=== PATIENT | male | born 1950 | race Caucasian/White ===

== ENCOUNTER 2017-10-19 06:50 | Inpatient (IN) | payer MEDICARE ==
[2017-10-17 12:22] VITALS: BP 125/72
[~2017-10-19] VITALS: Ht 193 cm; Wt 100.4 kg
[~2017-10-19 06:50] MED LIST: ALPR0.5T6 PO; APIX5TAB PO; AREDS2 PO; ASPI-515 PO; ATOR20TA PO; ATOR80TA PO; FAMO-79 PO; FLUT50DI NAS; HYDR30CR7 TP; LISI-170 PO; METO25TA35 PO; OLOP2.5D EACHEYE; SILD100T PO; SOTA80TA PO; TRIA80OI TP; UBID100C24 PO; VIT1CAPS42 PO; ZOLP10TA5 PO; areds2; will bring list DOS
[2017-10-19] MEDS ORDERED: SODIUM CHLORIDE 0.9% 1,000 ML IV SCH (07:20)
[2017-10-19] MEDS ORDERED: SODIUM CHLORIDE 0.9% 1,000 ML IV ONE (07:30)
[2017-10-19] MEDS ORDERED: MIDAZOLAM 1 MG/ML, 2ML ONE (09:22)
[2017-10-19] MEDS ORDERED: FENTANYL PF 250 MCG/5ML ONE (09:22)
[2017-10-19] MEDS ORDERED: LIDOCAINE-MPF 2% ,5ML ONE (09:29)
[2017-10-19] MEDS ORDERED: ROCURONIUM 10 MG/ML,10ML ONE (09:40)
[2017-10-19] MEDS ORDERED: PROPOFOL 10 MG/ML, 20ML ONE (09:40)
[2017-10-19] MEDS ORDERED: SUCCINYLCHOLINE 20 MG/ML, 10ML ONE (09:40)
[2017-10-19] MEDS ORDERED: DEXAMETHASONE 4 MG/ML, 1ML ONE (09:40)
[2017-10-19] MEDS ORDERED: ONDANSETRON 2MG/ML, 2ML ONE (09:40)
[2017-10-19] MEDS ORDERED: HEPARIN 1,000 UNITS/ML, 10ML ONE (10:25)
[2017-10-19] MEDS ORDERED: PROTAMINE SULFATE 10 MG/ML, 5ML ONE (12:01)
[2017-10-19] MEDS ORDERED: TRIAMCINOLONE OINT 0.025%, 15GM TP SCH (12:30)
[2017-10-19] MEDS ORDERED: HYDROCORTISONE CRM 0.025, 30GM TP PRN ×2 (12:30→16:00)
[2017-10-19] MEDS ORDERED: ZOLPIDEM 5MG TABLET PO PRN (12:30)
[2017-10-19] MEDS ORDERED: FAMOTIDINE 20 MG TABLET PO PRN (12:30)
[2017-10-19] MEDS ORDERED: MORPHINE SULFATE 4 MG/ML, 1ML IVPush PRN (13:00)
[2017-10-19] MEDS ORDERED: FENTANYL PF 100 MCG/2ML IV PRN (13:00)
[2017-10-19] MEDS ORDERED: PROMETHAZINE 25 MG/ML, 1ML IV PRN (13:00)
[2017-10-19] MEDS ORDERED: PROMETHAZINE 25 MG SUPP PR PRN (13:00)
[2017-10-19] MEDS ORDERED: ONDANSETRON ODT 8 MG PO PRN (13:00)
[2017-10-19] MEDS ORDERED: EPHEDRINE 50 MG/ML, 1ML IVPush PRN (13:00)
[2017-10-19] MEDS ORDERED: OXYcodone 5 MG/5 ML ORAL.SOL UDC PO PRN (13:00)
[2017-10-19] MEDS ORDERED: MIDAZOLAM 1 MG/ML, 2ML IV PRN (13:00)
[2017-10-19] MEDS ORDERED: DIPHENHYDRAMINE 50 MG/ML, 1ML IVPush PRN (13:00)
[2017-10-19] MEDS ORDERED: EPHEDRINE 50 MG/ML, 1ML IM PRN (13:00)
[2017-10-19] MEDS ORDERED: PROMETHAZINE 12.5 MG SUPP PR PRN (13:00)
[2017-10-19] MEDS: APIXABAN 5 MG TABLET PO SCH ×2 (13:06→20:35)
[2017-10-19] MEDS ORDERED: OXYcodone 5 MG/5 ML ORAL.SOL UDC ONE (13:29)
[2017-10-19] MEDS ORDERED: TRIAMCINOLONE OINT 0.025%, 15GM TP PRN (16:00)
[2017-10-19] MEDS: ACETAMINOPHEN 325 MG TABLET PO PRN ×2 (16:24→20:35)
[2017-10-19] MEDS: SOTALOL 80MG TABLET PO SCH (17:17)
[2017-10-19 19:22] VITALS: BP 126/62
[2017-10-19 20:35] VITALS: BP 133/75
[2017-10-19] MEDS: ATORVASTATIN 80 MG TABLET PO SCH (20:35)
[2017-10-19] MEDS: LISINOPRIL 20 MG TABLET PO SCH (20:35)
[2017-10-20 03:50] VITALS: BP 122/69
[2017-10-20] MEDS: SOTALOL 80MG TABLET PO SCH (05:38)
[2017-10-20 07:45] VITALS: BP 117/62
[2017-10-20] MEDS: MULTIVITAMINS/MINERALS TABLET PO SCH (07:58)
[2017-10-20] MEDS: TEMPLATE NON-FORMULARY MED. (Olopatadine Hcl (Pataday) 1 DROP) EACHEYE SCH (07:58)
[2017-10-20] MEDS: APIXABAN 5 MG TABLET PO SCH ×2 (07:58→19:48)
[2017-10-20] MEDS: FLUTICASONE PROPIONATE NAS SCH (07:58)
[2017-10-20] MEDS ORDERED: TEMPLATE NON-FORMULARY MED. (Ubidecarenone (Coq-10) 200 MG) PO SCH (09:00)
[2017-10-20] MEDS ORDERED: SOTALOL 80MG TABLET PO ONE (11:30)
[2017-10-20 13:56] VITALS: BP 119/72
[2017-10-20 17:48] VITALS: BP 145/75
[2017-10-20] MEDS: SOTALOL 120MG TABLET PO SCH (17:50)
[2017-10-20] MEDS: LISINOPRIL 20 MG TABLET PO SCH (19:48)
[2017-10-20] MEDS: ATORVASTATIN 80 MG TABLET PO SCH (19:48)
[2017-10-20 20:15] VITALS: BP 144/77
[2017-10-21 02:00] VITALS: BP 111/65
[2017-10-21] MEDS: SOTALOL 120MG TABLET PO SCH ×2 (06:03→17:45)
[2017-10-21 08:19] VITALS: BP 126/70
[2017-10-21] MEDS: APIXABAN 5 MG TABLET PO SCH ×2 (08:36→20:04)
[2017-10-21] MEDS: MULTIVITAMINS/MINERALS TABLET PO SCH (08:36)
[2017-10-21] MEDS: FLUTICASONE PROPIONATE NAS SCH (08:36)
[2017-10-21] MEDS: TEMPLATE NON-FORMULARY MED. (Olopatadine Hcl (Pataday) 1 DROP) EACHEYE SCH (08:36)
[2017-10-21 13:26] VITALS: BP 120/75
[2017-10-21] MEDS: ATORVASTATIN 80 MG TABLET PO SCH (20:04)
[2017-10-21] MEDS: LISINOPRIL 20 MG TABLET PO SCH (20:04)
[2017-10-21 20:58] VITALS: BP 117/70
[2017-10-22 00:36] VITALS: BP 109/64
[2017-10-22] MEDS: SOTALOL 120MG TABLET PO SCH (05:48)
[2017-10-22] MEDS ORDERED: SOTA120T14 PO (08:31)
[2017-10-22] MEDS: APIXABAN 5 MG TABLET PO SCH (08:34)
[2017-10-22] MEDS: MULTIVITAMINS/MINERALS TABLET PO SCH (08:34)
== END 2017-10-22 10:07 | disposition home or self-care (01) | DRG 274 ==
LOC: CACL 06:50 → OBSVTOIN 12:18 → ORIP 12:18 → 5SO 13:52
PROVIDERS: ADMIT Internal Medicine Cardiovascular Disease; ATTEND Internal Medicine Cardiovascular Disease
PROC: B246ZZZ Ultrasonography of Right and Left Heart (ICD-10-PCS; 2017-10-19)
PROC: 02K83ZZ Map Conduction Mechanism, Percutaneous Approach (ICD-10-PCS; 2017-10-19)
PROC: 4A023FZ Measurement of Cardiac Rhythm, Percutaneous Approach (ICD-10-PCS; 2017-10-19)
PROC: 4A0234Z Measurement of Cardiac Electrical Activity, Percutaneous Approach (ICD-10-PCS; 2017-10-19)
PROC: 02583ZZ Destruction of Conduction Mechanism, Percutaneous Approach (ICD-10-PCS; principal; 2017-10-19 09:30)
DX: I48.0 Paroxysmal atrial fibrillation (principal); D68.69 Other thrombophilia; I48.92 Unspecified atrial flutter; E78.5 Hyperlipidemia, unspecified; I10 Essential (primary) hypertension; I25.10 Atherosclerotic heart disease of native coronary artery without angina pectoris; Z79.01 Long term (current) use of anticoagulants; Z87.891 Personal history of nicotine dependence
CPT/HCPCS: 71046; 75572; 85347; 93005; 93306; 93312; 93321; 93325; 93613; 93656; 93662; C1732; C1766; C1893; C1894; G0378; J1100; J1644; J2250; J2405; J2704; J2720; J3010; J3490; Q9967; C1730; C1759; J0330

== ENCOUNTER 2017-11-04 14:03 | Inpatient (IN) | payer MEDICARE ==
[~2017-11-04] VITALS: Ht 193 cm; Wt 100.6 kg
[~2017-11-04 14:03] MED LIST changes: +SOTA120T14 PO
[2017-11-04 16:38] VITALS: BP 126/69
[2017-11-04] MEDS: PLEASE ENTER HEIGHT AND WEIGHT MC SCH ×2 (18:30→23:29)
[2017-11-04] MEDS ORDERED: ACETAMINOPHEN 325 MG TABLET PO PRN (18:30)
[2017-11-04] MEDS ORDERED: BISACODYL 10 MG SUPP PR PRN (18:30)
[2017-11-04] MEDS ORDERED: TRIAMCINOLONE OINT 0.025%, 15GM TP PRN (18:30)
[2017-11-04] MEDS ORDERED: ONDANSETRON ODT 4 MG PO PRN (18:30)
[2017-11-04] MEDS ORDERED: HYDROCORTISONE CRM 0.025, 30GM TP SCH (18:30)
[2017-11-04] MEDS ORDERED: FAMOTIDINE 20 MG TABLET PO PRN (18:30)
[2017-11-04] MEDS ORDERED: POLYETHYLENE GLYCOL 17 GM PACKET PO PRN (18:30)
[2017-11-04 19:14] LABS: FREE T4 (FREE THYROXINE) 1.04 ng/dL (0.76-1.46); TROPONIN I < 0.015 ng/mL (0.000-0.045)
[2017-11-04 20:34] VITALS: BP 120/71
[2017-11-04] MEDS ORDERED: APIXABAN 5 MG TABLET ONE (20:44)
[2017-11-04] MEDS: APIXABAN 5 MG TABLET PO SCH (20:49)
[2017-11-04] MEDS: LISINOPRIL 20 MG TABLET PO SCH (20:49)
[2017-11-04] MEDS: SODIUM CHLORIDE FLUSH 10ML SYR IVF SCH (20:49)
[2017-11-04] MEDS: ATORVASTATIN 80 MG TABLET PO SCH (20:49)
[2017-11-04] MEDS ORDERED: HYDROCORTISONE CRM 0.025, 30GM TP PRN (21:00)
[2017-11-04 23:00] VITALS: BP 116/68
[2017-11-04] MEDS: SOTALOL 120MG TABLET PO SCH (23:01)
[2017-11-04 23:06] VITALS: BP 116/68
[2017-11-05 00:55] LABS: TROPONIN I < 0.015 ng/mL (0.000-0.045)
[2017-11-05 02:19] VITALS: BP 108/72
[2017-11-05 04:50] LABS: BASOPHILS # (AUTO) 0.03 x10^3/uL (0-0.1); BASOPHILS % (AUTO) 1 % (0-1); EOSINOPHILS # (AUTO) 0.11 x10^3/uL (0-0.4); EOSINOPHILS % (AUTO) 1 % (1-7); LYMPHOCYTES # (AUTO) 2.49 x10^3/uL (1-3.4); LYMPHOCYTES % (AUTO) 33 % (22-44); MD NO; MEAN CORPUSCULAR HEMOGLOBIN 32.5 pg (27.5-34.5); MEAN CORPUSCULAR HGB CONC 34.6 g/dL (33.2-36.2); MEAN CORPUSCULAR VOLUME 93.9 fL (81-97); MONOCYTES # (AUTO) 0.82 x10^3/uL (0.2-0.8); MONOCYTES % (AUTO) 11 % (2-9); NEUTROPHILS # (AUTO) 4.14 x10^3/uL (1.8-6.8); NEUTROPHILS % (AUTO) 55 % (42-75); PLATELET COUNT 168 x10^3/uL (130-400); RED CELL DISTRIBUTION WIDTH 12.9 % (9.4-14.8)
[2017-11-05 05:00] LABS: ALANINE AMINOTRANSFERASE 20 U/L (12-78); ALBUMIN 3.2 g/dL (3.4-5.0); ANION GAP 8 mmol/L (5-15); CALCIUM 8.4 mg/dL (8.5-10.1); CHLORIDE 112 mmol/L (98-107)
[2017-11-05 05:11] LABS: ALKALINE PHOSPHATASE 63 U/L (45-117); CREATININE 0.98 mg/dL (0.7-1.3); THYROID STIMULATING HORMONE 0.867 mIU/L (0.358-3.740); TOTAL PROTEIN 6.5 g/dL (6.4-8.2)
[2017-11-05 06:28] VITALS: BP 125/74
[2017-11-05] MEDS: APIXABAN 5 MG TABLET PO SCH (08:50)
[2017-11-05] MEDS: MULTIVITAMINS/MINERALS TABLET PO SCH (08:51)
[2017-11-05] MEDS: ASPIRIN 81 MG TABLET EC PO SCH ×2 (08:51→09:00)
[2017-11-05] MEDS: SENNA/DOCUSATE TABLET PO SCH (08:51)
[2017-11-05] MEDS: FLUTICASONE NASAL SPRAY 16GM NAS SCH (08:56)
[2017-11-05] MEDS ORDERED: TEMPLATE NON-FORMULARY MED. (Ubidecarenone (Coq-10) 200 MG) PO SCH (09:00)
[2017-11-05] MEDS: TEMPLATE NON-FORMULARY MED. (Olopatadine Hcl (Pataday) 1 DROP) EACHEYE SCH (09:00)
[2017-11-05] MEDS: SODIUM CHLORIDE FLUSH 10ML SYR IVF SCH ×2 (09:50→21:56)
[2017-11-05] MEDS: SOTALOL 120MG TABLET PO SCH (10:36)
[2017-11-05 12:39] VITALS: BP 160/91
[2017-11-05] MEDS ORDERED: CEFAZOLIN PMX 1GM/50ML 50 ML IVPB ONE (13:00)
[2017-11-05] MEDS: SODIUM CHLORIDE 0.9% 1,000 ML IV SCH ×4 (20:00→20:05)
[2017-11-05 21:32] VITALS: BP 116/69
[2017-11-05] MEDS: LISINOPRIL 20 MG TABLET PO SCH (21:56)
[2017-11-05] MEDS: ATORVASTATIN 80 MG TABLET PO SCH (21:56)
[2017-11-06 01:10] VITALS: BP 97/59
[2017-11-06] MEDS: SODIUM CHLORIDE 0.9% 1,000 ML IV SCH (06:31)
[2017-11-06] MEDS: FLUTICASONE NASAL SPRAY 16GM NAS SCH (07:09)
[2017-11-06] MEDS: TEMPLATE NON-FORMULARY MED. (Olopatadine Hcl (Pataday) 1 DROP) EACHEYE SCH (07:09)
[2017-11-06 07:12] VITALS: BP 111/70
[2017-11-06] MEDS: ASPIRIN 81 MG TABLET EC PO SCH (09:00)
[2017-11-06] MEDS ORDERED: CEFAZOLIN PMX 1GM/50ML 50 ML IV ONE (09:00)
[2017-11-06] MEDS ORDERED: LIDOCAINE 2%, 10ML ONE (09:21)
[2017-11-06] MEDS ORDERED: MIDAZOLAM 1 MG/ML, 5ML ONE (09:22)
[2017-11-06] MEDS ORDERED: FENTANYL PF 100 MCG/2ML ONE (09:22)
[2017-11-06] MEDS ORDERED: CEFAZOLIN 1,000 MG ONE (09:22)
[2017-11-06] MEDS ORDERED: HOLD MEDICATION MC PRN (10:30)
[2017-11-06] MEDS ORDERED: ACETAMINOPHEN 325 MG TABLET PO PRN (10:30)
[2017-11-06] MEDS: SODIUM CHLORIDE FLUSH 10ML SYR IVF SCH ×3 (11:19→21:04)
[2017-11-06] MEDS: MULTIVITAMINS/MINERALS TABLET PO SCH (11:19)
[2017-11-06] MEDS: SENNA/DOCUSATE TABLET PO SCH (11:19)
[2017-11-06] MEDS ORDERED: HYDROcodone/APAP 5/325 TABLET ONE (15:58)
[2017-11-06 15:59] VITALS: BP 134/82
[2017-11-06] MEDS ORDERED: HYDROcodone/APAP 5/325 TABLET PO PRN (16:00)
[2017-11-06] MEDS: CEFAZOLIN PMX 1GM/50ML 50 ML IVPB SCH (17:00)
[2017-11-06] MEDS: SOTALOL 80MG TABLET PO SCH (18:20)
[2017-11-06 21:01] VITALS: BP 134/73
[2017-11-06] MEDS: ATORVASTATIN 80 MG TABLET PO SCH (21:03)
[2017-11-06] MEDS: LISINOPRIL 20 MG TABLET PO SCH (21:03)
[2017-11-07] MEDS: CEFAZOLIN PMX 1GM/50ML 50 ML IVPB SCH (01:05)
[2017-11-07 01:08] VITALS: BP 118/74
[2017-11-07] MEDS: SOTALOL 80MG TABLET PO SCH ×3 (05:38→17:29)
[2017-11-07] MEDS: FLUTICASONE NASAL SPRAY 16GM NAS SCH (07:17)
[2017-11-07 07:23] VITALS: BP 132/74
[2017-11-07] MEDS ORDERED: APIXABAN 5 MG TABLET ONE (08:13)
[2017-11-07] MEDS: SENNA/DOCUSATE TABLET PO SCH ×2 (08:17→13:49)
[2017-11-07] MEDS: MULTIVITAMINS/MINERALS TABLET PO SCH (08:17)
[2017-11-07] MEDS: APIXABAN 5 MG TABLET PO SCH (08:17)
[2017-11-07] MEDS: ASPIRIN 81 MG TABLET EC PO SCH (08:17)
[2017-11-07] MEDS: TEMPLATE NON-FORMULARY MED. (Olopatadine Hcl (Pataday) 1 DROP) EACHEYE SCH (08:18)
[2017-11-07] MEDS: SODIUM CHLORIDE FLUSH 10ML SYR IVF SCH ×4 (09:00→20:54)
[2017-11-07 13:04] VITALS: BP 111/71
[2017-11-07 20:08] VITALS: BP 107/68
[2017-11-07] MEDS: LISINOPRIL 20 MG TABLET PO SCH (20:53)
[2017-11-07] MEDS: ATORVASTATIN 80 MG TABLET PO SCH (20:53)
[2017-11-07] MEDS ORDERED: APIXABAN 5 MG TABLET PO SCH (21:00)
[2017-11-08 04:12] VITALS: BP 108/65
[2017-11-08] MEDS: SOTALOL 80MG TABLET PO SCH (05:51)
[2017-11-08 05:54] VITALS: BP 104/64
[2017-11-08 07:39] VITALS: BP 115/70
[2017-11-08] MEDS ORDERED: SOTA120T14 PO (07:45)
[2017-11-08] MEDS: APIXABAN 5 MG TABLET PO SCH (08:48)
[2017-11-08] MEDS: SENNA/DOCUSATE TABLET PO SCH (08:48)
[2017-11-08] MEDS: ASPIRIN 81 MG TABLET EC PO SCH (08:48)
[2017-11-08] MEDS: MULTIVITAMINS/MINERALS TABLET PO SCH (08:48)
[2017-11-08] MEDS: TEMPLATE NON-FORMULARY MED. (Olopatadine Hcl (Pataday) 1 DROP) EACHEYE SCH (08:50)
[2017-11-08] MEDS: FLUTICASONE NASAL SPRAY 16GM NAS SCH (08:50)
== END 2017-11-08 11:54 | disposition home or self-care (01) | DRG 242 ==
LOC: 5SO 16:08 → DCLOUNGE 11-08 11:47
PROVIDERS: ADMIT Hospitalist; ATTEND Hospitalist
PROC: 0JH606Z Insertion of Pacemaker, Dual Chamber into Chest Subcutaneous Tissue and Fascia, Open Approach (ICD-10-PCS; principal; 2017-11-06)
PROC: 02H63JZ Insertion of Pacemaker Lead into Right Atrium, Percutaneous Approach (ICD-10-PCS; 2017-11-06)
PROC: 02HK3JZ Insertion of Pacemaker Lead into Right Ventricle, Percutaneous Approach (ICD-10-PCS; 2017-11-06)
DX: I49.5 Sick sinus syndrome (principal); I50.31 Acute diastolic (congestive) heart failure; D68.69 Other thrombophilia; I48.92 Unspecified atrial flutter; I48.2 Chronic atrial fibrillation; E78.5 Hyperlipidemia, unspecified; F41.9 Anxiety disorder, unspecified; G62.9 Polyneuropathy, unspecified; I25.10 Atherosclerotic heart disease of native coronary artery without angina pectoris; I48.0 Paroxysmal atrial fibrillation; I10 Essential (primary) hypertension; K21.9 Gastro-esophageal reflux disease without esophagitis; K57.90 Diverticulosis of intestine, part unspecified, without perforation or abscess without bleeding; G43.909 Migraine, unspecified, not intractable, without status migrainosus; K64.9 Unspecified hemorrhoids; N40.0 Benign prostatic hyperplasia without lower urinary tract symptoms; Z85.828 Personal history of other malignant neoplasm of skin; I25.2 Old myocardial infarction; Z95.5 Presence of coronary angioplasty implant and graft; Z87.891 Personal history of nicotine dependence; Z79.01 Long term (current) use of anticoagulants; Z79.899 Other long term (current) drug therapy; Z79.82 Long term (current) use of aspirin; Z82.49 Family history of ischemic heart disease and other diseases of the circulatory system; Z83.1 Family history of other infectious and parasitic diseases; I11.0 Hypertensive heart disease with heart failure
CPT/HCPCS: 33208; 36415; 71045; 80053; 83735; 84439; 84443; 84484; 85025; 99156; C1779; C1785; C1892; G0378; J0690; J2001; J2250; J3010; J7030; Q9967

== ENCOUNTER 2018-06-05 11:28 | Outpatient (CLI) | payer MEDICARE ==
[~2018-06-05 11:28] MED LIST changes: -OMNIPAQUE 350 MG/ML, 150 ML BOTTLE ONE; -SOTA160T PO
[2018-06-05] MEDS ORDERED: SOTA160T PO (12:10)
[2018-06-05 12:21] LABS: BASOPHILS # (AUTO) 0.03 x10^3/uL (0-0.1); BASOPHILS % (AUTO) 0 % (0-1); EOSINOPHILS # (AUTO) 0.15 x10^3/uL (0-0.4); EOSINOPHILS % (AUTO) 2 % (1-7); LYMPHOCYTES # (AUTO) 2.23 x10^3/uL (1-3.4); LYMPHOCYTES % (AUTO) 30 % (22-44); MD NO; MEAN CORPUSCULAR HGB CONC 33.9 g/dL (33.2-36.2); MEAN CORPUSCULAR VOLUME 94.3 fL (81-97); MEAN PLATELET VOLUME 10.1 fL (7.4-10.4); MONOCYTES # (AUTO) 0.88 x10^3/uL (0.2-0.8); MONOCYTES % (AUTO) 12 % (2-9); NEUTROPHILS # (AUTO) 4.24 x10^3/uL (1.8-6.8); NEUTROPHILS % (AUTO) 56 % (42-75); PLATELET COUNT 159 x10^3/uL (130-400); RED BLOOD COUNT 4.66 x10^6/uL (4.38-5.82); RED CELL DISTRIBUTION WIDTH 13.1 % (9.4-14.8)
[2018-06-05 12:36] LABS: ALBUMIN 3.9 g/dL (3.4-5.0); ANION GAP 5 mmol/L (5-15); CALCIUM 9.1 mg/dL (8.5-10.1); CHLORIDE 106 mmol/L (98-107)
[2018-06-05 12:41] LABS: ALANINE AMINOTRANSFERASE 29 U/L (12-78); ALKALINE PHOSPHATASE 62 U/L (45-117); BILIRUBIN,TOTAL 1.7 mg/dL (0.2-1.0); CREATININE 1.18 mg/dL (0.7-1.3); TOTAL PROTEIN 7.4 g/dL (6.4-8.2)
== END 2018-06-05 23:59 | disposition home or self-care (01) ==
LOC: STAR 11:28
PROVIDERS: ATTEND Internal Medicine Cardiovascular Disease
DX: I48.91 Unspecified atrial fibrillation (principal)
CPT/HCPCS: 36415; 80053; 85025

== ENCOUNTER → 2018-06-05 | Outpatient (CLI) | payer MEDICARE ==
[~2018-06-05] MED LIST changes: +OMNIPAQUE 350 MG/ML, 150 ML BOTTLE ONE; +SOTA160T PO
== END | disposition home or self-care (01) ==
LOC: CFH 10:16
PROVIDERS: ATTEND Internal Medicine Cardiovascular Disease
DX: K76.89 Other specified diseases of liver (principal); I77.810 Thoracic aortic ectasia; I48.91 Unspecified atrial fibrillation
CPT/HCPCS: 71046; 75572; Q9967

== ENCOUNTER 2018-06-09 06:00 | Observation (INO) | payer MEDICARE ==
[2018-06-05 11:50] VITALS: BP 120/87
[~2018-06-09] VITALS: Ht 193 cm; Wt 106.1 kg
[~2018-06-09 06:00] MED LIST changes: +SOTA160T PO
[2018-06-09] MEDS ORDERED: SODIUM CHLORIDE 0.9% 1,000 ML IV SCH (06:20)
[2018-06-09] MEDS ORDERED: SODIUM CHLORIDE 0.9% 1,000 ML IV ONE (06:30)
[2018-06-09] MEDS ORDERED: SOTA120T26 PO (06:31)
[2018-06-09] MEDS ORDERED: LIDOCAINE 1%, 20ML ONE (07:15)
[2018-06-09] MEDS ORDERED: FENTANYL PF 100 MCG/2ML ONE ×2 (07:41→11:02)
[2018-06-09] MEDS ORDERED: ISOPROTERENOL 0.2MG/ML, 5ML ONE (09:12)
[2018-06-09] MEDS ORDERED: HEPARIN 1,000 UNITS/ML, 10ML ONE ×2 (10:06)
[2018-06-09] MEDS ORDERED: PROPOFOL 10 MG/ML, 20ML ONE (10:06)
[2018-06-09] MEDS ORDERED: ONDANSETRON 2MG/ML, 2ML ONE (10:06)
[2018-06-09] MEDS ORDERED: DEXAMETHASONE 4 MG/ML, 1ML ONE (10:06)
[2018-06-09] MEDS ORDERED: ROCURONIUM 10MG/ML,5ML ONE ×2 (10:06)
[2018-06-09] MEDS ORDERED: PROTAMINE SULFATE 10 MG/ML, 5ML ONE (10:21)
[2018-06-09] MEDS ORDERED: NEOSTIGMINE 1 MG/ML, 10ML ONE (10:34)
[2018-06-09] MEDS ORDERED: GLYCOPYRROLATE 0.4 MG/2 ML, 2ML ONE (10:34)
[2018-06-09] MEDS ORDERED: APIXABAN 5 MG TABLET ONE (10:43)
[2018-06-09] MEDS ORDERED: FLUTICASONE NASAL SPRAY 16GM NAS PRN (11:00)
[2018-06-09] MEDS ORDERED: HYDROCORTISONE/PRAMOXINE CRM 1-1%, 30GM TP PRN (11:00)
[2018-06-09] MEDS: APIXABAN 5 MG TABLET PO SCH ×2 (11:00→20:25)
[2018-06-09] MEDS ORDERED: APIXABAN 5 MG TABLET PO SCH (11:00)
[2018-06-09] MEDS ORDERED: FAMOTIDINE 20 MG TABLET PO PRN (11:00)
[2018-06-09] MEDS ORDERED: TEMPLATE NON-FORMULARY MED. (Olopatadine Hcl (Pataday) 1 DROP) EACHEYE PRN (11:00)
[2018-06-09] MEDS ORDERED: hydrALAzine 20 MG/ML, 1ML IV PRN (11:30)
[2018-06-09] MEDS ORDERED: PROMETHAZINE 25 MG/ML, 1ML IV PRN (11:30)
[2018-06-09] MEDS ORDERED: MEPERIDINE/PF 25MG/0.5ML IVPush PRN (11:30)
[2018-06-09] MEDS ORDERED: ACETAMINOPHEN 325 MG TABLET PO PRN (11:30)
[2018-06-09] MEDS ORDERED: LABETALOL 5MG/ML, 20ML IV PRN (11:30)
[2018-06-09] MEDS ORDERED: ONDANSETRON 2MG/ML, 2ML IV PRN (11:30)
[2018-06-09] MEDS ORDERED: FENTANYL PF 100 MCG/2ML IV PRN (11:30)
[2018-06-09] MEDS ORDERED: OXYcodone 5 MG/5 ML ORAL.SOL UDC PO PRN (11:30)
[2018-06-09] MEDS ORDERED: HYDROmorphone 2 MG/ML, 1ML IVPush PRN (11:30)
[2018-06-09 12:18] VITALS: BP 130/81
[2018-06-09] MEDS: ASPIRIN 81 MG TABLET EC PO SCH (14:25)
[2018-06-09 14:29] VITALS: BP 126/68
[2018-06-09 19:58] VITALS: BP 130/78
[2018-06-09] MEDS: SOTALOL 80MG TABLET PO SCH (20:25)
[2018-06-09] MEDS ORDERED: LISINOPRIL 20 MG TABLET PO SCH (21:00)
[2018-06-09] MEDS ORDERED: ATORVASTATIN 80 MG TABLET PO SCH (21:00)
[2018-06-09] MEDS: ACETAMINOPHEN 325 MG TABLET PO PRN (22:16)
[2018-06-10 03:35] VITALS: BP 136/72
[2018-06-10] MEDS: ACETAMINOPHEN 325 MG TABLET PO PRN (03:42)
[2018-06-10 06:37] VITALS: BP 122/72
[2018-06-10] MEDS ORDERED: SOTA80TA18 PO (08:38)
[2018-06-10] MEDS ORDERED: ACET325T14 PO (08:38)
[2018-06-10] MEDS ORDERED: TEMPLATE NON-FORMULARY MED. (Ubidecarenone (Coq-10) 200 MG) PO SCH (09:00)
[2018-06-10] MEDS ORDERED: MULTIVITAMINS/MINERALS TABLET PO SCH (09:00)
[2018-06-10] MEDS: ASPIRIN 81 MG TABLET EC PO SCH (09:17)
[2018-06-10] MEDS: SOTALOL 80MG TABLET PO SCH (09:18)
[2018-06-10] MEDS: APIXABAN 5 MG TABLET PO SCH (09:18)
== END 2018-06-10 13:25 | disposition home or self-care (01) ==
LOC: CACL 06:00 → ORIP 10:39 → 5SO 12:11 → DCLOUNGE 06-10 13:09
PROVIDERS: ADMIT Internal Medicine Cardiovascular Disease; ATTEND Internal Medicine Cardiovascular Disease
DX: I48.91 Unspecified atrial fibrillation (principal); Z79.01 Long term (current) use of anticoagulants
CPT/HCPCS: 85347; 93306; 93312; 93321; 93325; 93613; 93623; 93656; 93657; 93662; C1730; C1732; C1759; C1766; C1893; C1894; G0378; J1100; J1644; J2405; J2704; J2710; J3010; J3490; J2720